=== PATIENT | female | born 1995 | race Hispanic/Latino ===

== ENCOUNTER 2019-07-26 18:17 | Emergency (ER) | payer MEDICARE ==
[~2019-07-26] VITALS: Ht 175.3 cm; Wt 108.9 kg
--- OUTSIDE RECORDS SUMMARY | 2019-07-26 18:20 | XMS REPORT | Summary of Care ---
Author Author [facility] - Health Organization [facility] - Health Address Unknown Phone Unavailable Care Team Providers [employer] Sales Representative Name Role Phone Mykel Vaughana Summer DIXONM PCP Reason for Visit * Reason Comments Lab Results Encounter Details Care Team Description Date Type Department Gabby Reyes [id number] [place] [address] Lab Results [facility]12/2019 [facility] [address] [place] [address] Allergies Comments Active Allergy Reactions Severity Noted Date Penicillin Rash 01/18/2018 documented as of this encounter (statuses as of 06/12/2019) Medications End Date Status Medication Sig Dispensed Refills Start Date 06/15/2019 Active valACYclovir 500 mg Take 1 tablet 20 tablet 3 tablet by mouth 2 9 (two) times daily for 40 days. 06/12/2019 Active azithromycin (ZITHROMAX) Take 2 2 tablet 0 500 mg tabletIndications: tablets by 9 Chlamydia trachomatis mouth once infection of lower now for 1 genitourinary sites dose. 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 Needs #2 cotesting 2019 Obesity (BMI 30-39.9) 01/18/2018 documented as of this encounter (statuses as of 06/12/2019) Resolved Problems Problem Noted Date Resolved Date Irregular menstrual cycle 05/06/2019 06/11/2019 Herpes simplex vulvovaginitis 12/06/2018 06/11/2019 General counseling for prescription of oral contraceptives 01/18/2018 05/08/2018 documented as of this encounter (statuses as of 06/12/2019) Immunizations Name Administration Dates Next Due HPV9 05/06/2019, 12/05/2018 Influenza Virus Vaccine 12/05/2018 Quad .5 mL IM 6+ MO Tdap 12/05/2018 documented as of this encounter Social History Date Tobacco Use Types Packs/Day Years Used Never Smoker Smokeless Tobacco: Never Used Drinks/Week oz/Week Comments Alcohol Use No Sex Assigned at Date Recorded Not on file Industry Job Start Date Occupation Not on file Not on file Not on file Travel End Travel History Travel Start No recent travel history available. documented as of this encounter Last Filed Vital Signs Not on filedocumented in this encounter Plan of Treatment Care Team Description Date Type Specialty Lab, Jey 09/12/2019 [employer] [facility] Visit 1, Jey Slade Rn 11/07/2019 Nurse Visit [facility] Order Schedule Name Type Priority Associated Diagnoses Expected: 09/11/2019, Expires: 12/12/2019 GC & CHLAMYDIA AMPLIFIED LAB Routine Chlamydia trachomatis ASSAY infection of lower genitourinary sites Health Maintenance Due Date Last Done Comments INFLUENZA VACCINE (#1) 2019 12/05/2018 HPV VACCINES (3 - Female 07/29/2019 05/06/2019, 12/05/2018 3-dose series) VARICELLA VACCINES (1 of 06/11/2020 Postponed from 2006 2 - 13+ 2-dose series) (Insurance / Financial) PAP SMEAR 05/06/2022 05/06/2019, 01/18/2018 DTaP,Tdap,and Td Vaccines 12/05/2028 12/05/2018 (2 - Td) PNEUMOCOCCAL 0-64 YEARS Aged Out No longer eligible based COMBINED SERIES on patient's age to complete this topic documented as of this encounter Results Not on filedocumented in this encounter Visit Diagnoses Diagnosis Chlamydia trachomatis infection of lower genitourinary sites - Primary documented in this encounter Insurance Type Payer Benefit Subscriber ID Effective Phone Address Plan / Dates Group Medicaid [facility] [place] [facility] x[facility]-P [phone] [id number] [place] [address] documented as of this encounter Advance Directives Relationship Healthcare Agent Relationship Communication Name Mother Primary healthcare agent Lynette Palma
--- OUTSIDE RECORDS SUMMARY | 2019-07-26 18:20 | XMS REPORT | Summary of Care ---
Author Author [facility] Organization [facility] - [facility] Address Unknown Phone Unavailable Care Team Providers Care Management Coordinator Name Role Phone Kallie Vaughan CNM PCP Reason for Referral * (Routine) Referred By Contact Referred To Contact Status Reason Specialty Diagnoses / Procedures Sheela Zeng CNM [address] [address] New Request Diagnoses Pap smear of cervix with ASCUS, cannot exclude HGSIL P rocedures COLPOSCOPY,CERVIX W/ADJ VAGINA, CURETTAG Reason for Visit * Reason Comments ABNORMAL PAP Encounter Details Care Team Description Date Type Department Sheela Zeng CNM [address] [id number] Pap smear of cervix with ASCUS, cannot exclude HGSIL (Primary Dx); Pre-procedure lab exam; Obesity (BMI 30-39.9); HSV-2 (herpes simplex virus 2) infection; Chlamydia trachomatis infection of lower genitourinary sites; Status post colposcopy 06/11/[address] [facility] [address] [place] [address] Allergies Comments Active Allergy Reactions Severity Noted Date Penicillin Rash 01/18/2018 documented as of this encounter (statuses as of 06/11/2019) Medications End Date Status Medication Sig Dispensed Refills Start Date 06/15/2019 Active valACYclovir 500 mg Take 1 tablet 20 tablet 3 07/16/201 tablet by mouth 2 9 (two) times daily for 40 days. documented as of this encounter (statuses as of 06/11/2019) Active Problems Problem Noted Date Pre-procedure lab exam 06/11/2019 Chlamydia trachomatis infection of lower genitourinary sites 06/11/2019 Status post colposcopy 06/11/2019 HSV-2 (herpes simplex virus 2) infection 12/05/2018 Pap smear of cervix with ASCUS, cannot exclude HGSIL 05/08/2018 Overview: colpo 201705/06/2019- Cotesting. Needs #2 cotesting 2019 Obesity (BMI 30-39.9) 01/18/2018 documented as of this encounter (statuses as of 06/11/2019) Resolved Problems Problem Noted Date Resolved Date Irregular menstrual cycle 05/06/2019 06/11/2019 Herpes simplex vulvovaginitis 12/06/2018 06/11/2019 General counseling for prescription of oral contraceptives 01/18/2018 05/08/2018 documented as of this encounter (statuses as of 06/11/2019) Immunizations Name Administration Dates Next Due HPV9 [...] of this encounter Last Filed Vital Signs Reading Time Taken Comments Vital Sign 121/74 06/11/2019 2:55 PM CDT Blood Pressure 65 06/11/2019 2:55 PM CDT Pulse 37.1 C (98.8 F) 06/11/2019 2:55 PM CDT Temperature 21 06/11/2019 2:55 PM CDT Respiratory Rate - - Oxygen Saturation - - Inhaled Oxygen Concentration 99.5 kg (219 lb 6.4 oz) 06/11/2019 2:55 PM CDT Weight 163.8 cm (5' 4.5") 06/11/2019 2:55 PM CDT Height 37.08 06/11/2019 2:55 PM CDT Body Mass Index documented in this encounter Patient Instructions * Patient Instructions* Kell Church, GRID TRIMMER - 06/11/2019 2:45 PM CDT Index Polish Relatedtopics Adult Immunizations SESAY POINTS You need shots to help keep you from getting sick from some illnesses. The sh ots can help prevent some serious health problems. Most people need shots to protect against the flu and tetanus. Depending on y our age and health, you may need other shots. Your healthcare provider can tell you what shots you should have, and when to have them. What are immunizations? The immune system is how your body fights against infection. Immunizations (also called vaccines) are medicines to help your immune system protect you from infe ction. Some immunizations require more than one shot, and others can be given in just one shot. Some immunizations work best if you get a booster shot every few years. If you dont get all the shots you need to be immunized, you may be at risk for getting sick. Keeping up to date with your shots may keep you from getting a serious disease. The shots make it much less likely that you will get sick. If you do get the inf ection after you get the vaccine, you may not get as sick as you would if you purdy d not been immunized. Some vaccines keep you from being a carrier and infecting infants. What immunizations do adults need? Adults should have immunizations to protect against the following diseases. Tetanus, diphtheria, and pertussis are diseases caused by bacteria. Tetanus, also called lockjaw, is a disease that enters your body through cuts and scratches. Tetanus causes severe muscle spasms, including the muscles of the head and neck. It can cause . Diphtheria is spread from person to person. It causes a thick coating on thro at that can lead to breathing problems and . Pertussis, also called whooping cough, is easily spread from person to person . It can cause severe coughing and vomiting. It can be a dangerous infection for babies who might catch it from adults. Adults can be carriers without being sick or having symptoms. The Tdap not only protects you from whooping cough, but it also keeps you from being a carrier and infecting infants. Adults and older children are given either Tdap, which gives protection against all 3 illnesses, or Td, which gives protection against tetanus and diphtheria: If you didnt get the 3-shot series of shots for these infections as a chil d, you should get them now. One dose of Tdap is recommended for all teens and adults, even if you have purdy d tetanus vaccines as a child. It can be given in place of a tetanus booster. Th en get a Td booster every 10 years. If you have an animal bite, or a cut or puncture wound that has dirt or sheridan metal in it, and your last tetanus shot was more than 5 years ago (or you don't know when you had your last shot), get a Td or Tdap shot as soon as possible af ter the bite or injury. women should get the Tdap shot after the 20th week of , pre ferably during the last trimester of (weeks 27 to 40). This is recomme nded for each . Influenza (flu) is caused by a virus that is easily spread from person to per son. It causes fever, headaches, body aches, sore throat, and cough. Adults and children 6 months and older should get a flu shot every year. July is the bes t time to get the vaccine. Getting a flu shot is especially important for people who are old, very young, or who have a chronic health condition. Its also im portant for women to get a flu shot. If you think you are allergic to eggs, talk to your healthcare provider before g etting the vaccine. Pneumococcal disease is caused by bacteria and is spread from person to perso n. The bacteria can cause serious infections of the lungs, blood, or the coverin g of the brain (meningitis). The pneumococcal shot is recommended for all adults 65 and older. Your healthcare provider may recommend the shot if you are younger than 65 and have health problems, such as diabetes, lung, heart or kidney prob lems or an immune system illness like HIV. Two types of pneumococcal shots are u sed. Ask your healthcare provider about getting one or both types over several w eeks or up to a year apart. Other shots you may need are: Chickenpox (varicella) is a common childhood rash caused by a virus. The viru s is passed from person to person. Chickenpox can cause serious problems such as high fevers or swelling in the brain, in adults who never had the disease or the vaccination. Two shots of the vaccine are recommended if you have never had ch ickenpox. Shingles (herpes zoster) is a painful rash caused by the same virus that caus es chickenpox. The pain caused by shingles can last for months or years after th e rash is gone. Anyone who has had chickenpox can get shingles. It is most commo n in middle-aged or older adults. Adults 60 years of age and older should get th e shingles vaccine. The vaccine does not always prevent shingles, but it can les sen the pain if you do get shingles. Hepatitis A is a liver infection caused by a virus. You can get this infectio n if you touch something infected with the virus and then touch your mouth. Hepa titis A is often spread by eating food that has been touched by an infected pers on who has not washed their hands after going to the bathroom. Talk to your prov ider to see if you may need hepatitis A shots. You may be able to get a combined hepatitis A/hepatitis B vaccine. This combined vaccine is given in 3 doses over 6 months. Hepatitis B is a liver infection caused by a virus. You can get this infectio n by coming in contact with the blood or other body fluids of someone who is inf ected with the virus. Hepatitis B is often spread by having sex with or sharing needles with someone who has the infection. The vaccine is given as a 3-shot ser ies over 6 months. Measles, mumps, and rubella are infections caused by viruses that are passed from person to person. They are usually mild illnesses in children but may cause serious problems for adults. The shot for these 3 diseases is recommended if you were born in 1956 or later. Measles and mumps were very common before 1957, so older adults have probably been exposed to these diseases and are already immun e. If you have had 1 measles shot, you may need a second one. Ask your healthcar e provider. If a woman is not immune to rubella (also called Japanese measles) and gets infect ed with the rubella virus during , the baby could also get infected. Th e infection could cause severe defects. Women who have not had rubella and did not get the MMR shot as a child should have the shot before they get pregna nt. Women should avoid getting for at least 28 days after the shot. Meningococcal vaccine protects against meningitis, which is an infection of t he brain and spinal cord that is passed from person to person. This shot is maribel mmended for people with weak immune systems or who live in dormitories, such as in college or the . Human papillomavirus (HPV) is a virus that can cause cancer of the mouth, roger s, penis, or cervix, as well as genital warts. The HPV vaccine is approved for f emales and males age 9 to 26 years old. The vaccine is most effective if it is g iven before a young man or woman has sex for the first time. It is given as a se maverick of shots over 6 months. Haemophilus influenza type b (Hib) is a type of bacteria that can cause menin gitis, pneumonia, and infections of the throat, joints, heart, and blood. The va ccine is recommended for babies, and for some people who have had their spleens removed, who have had a bone marrow transplant, or who have a problem with their immune system. Ask your healthcare provider if you should have this vaccine. Travel to some countries requires shots against typhoid and other diseases. The shots you need may be different depending on what countries you are visiting. Yo healthcare provider or public health department can tell you what shots you n eed. Check on which shots you will need 2 or 3 months before your trip, because some vaccines need a few weeks before they protect you. Where can I get the shots? You can get the shots from your healthcare provider and at most local health [facility] artments. You can get more information from: Centers for Disease Control and Prevention [phone] https://www.cdc.gov/vaccines/index.html Developed by [employer]. Adult Advisor 2017.4 published by [employer]. Last modified: 2016-12-11 Last reviewed: 2017-07-12 This content is reviewed periodically and is subject to change as new health inf ormation becomes available. The information is intended to inform and educate an d is not a replacement for medical evaluation, advice, diagnosis or treatment by a healthcare professional. References Adult Advisor 2016.4 Index Copyright 2017 [employer], a division of [employer] All righ ts reserved. Index Polish Relatedtopics Pap Test SESAY POINTS A Pap test is a screening test done during a pelvic exam to check for abnorma l changes in the thin layer of cells that cover the cervix or vagina. Schedule your Pap test between menstrual periods. Dont douche, use creams or medicines in your vagina, or have sex for a day or two before the test. If the test result is normal, you dont need follow-up tests or treatment. If the test result is abnormal, ask your healthcare provider what types of abnor mal changes were found and what follow-up tests you might need. What is a Pap test? A Pap test is a screening test done during a pelvic exam. It checks for abnormal changes in the thin layer of cells that cover the cervix or vagina. The cervix is the lower part of the uterus that opens into the vagina. The vagina is the bi rth canal. The Pap test is also called a Pap smear or cervical smear. Why is this test done? This test is done to check for cervical cancer or precancerous changes in the ce lls called cervical intraepithelial neoplasia (DON). Cervical cancer can be prev ented if abnormal cells are found and treated before they become cancerous. Regu lar screening with Pap tests has reduced deaths from cervical cancer. The Pap test may also detect vaginal infections such as yeast infections, bacter ial vaginosis, or trichomonas. A human papillomavirus (HPV) test may be done at the same time as the Pap smear, using the same cells or different cells taken from your cervix. HPV infection c an cause cervical cancer. How often should I have a Pap test? You should have your first Pap test at age 21, even if you are not sexually acti ve. Then you should have a Pap test at least every 3 years until you are 65. If you are 30 or older, your healthcare provider may suggest combining a Pap test w ith an HPV test every 5 years instead of a Pap test every 3 years. You may need more frequent Pap tests if there are things that put you at a higher risk for ce rvical cancer or if you have had abnormal Pap tests. If you are over 65 years ol d, ask your healthcare provider if you can stop having Pap tests. If you have had a hysterectomy to remove all of the uterus, including the cervix , for reasons other than cancer, you may not need to have Pap tests. If you had a hysterectomy because of cancer or abnormal cells, or if your cervix was not re moved, you will need to keep having Pap tests as recommended by your healthcare provider. You and your healthcare provider can decide what testing schedule is right for y ou. Your healthcare provider may also recommend a pelvic exam every 1 to 3 years . A pelvic exam is a checkup of your female organs: the cervix, uterus, vagina, ovaries, and fallopian tubes. How do I prepare for this test? Dont schedule your Pap test during your menstrual period. The best time to schedule the test at a time when you are between periods. Dont douche for at least 2 days before the test. Dont use any creams or medicine in your vagina for at least 2 days before the test unless your healthcare provider tells you to. Dont have sex for 1 or 2 days before the Pap test because it can affect th e results. How is the test done? A Pap test takes only a few seconds and is done during a pelvic exam. You will l ie on your back on the exam table with your knees bent and the heels of your fee t in stirrup heel holders. Your healthcare provider will put a small tool called a speculum into your vagina to hold the vaginal horn open during the exam. Your provider will use a small, soft brush to take a few cells from the cervix. The cells will be sent to a lab for testing. The Pap test is not painful, but you may feel some discomfort when the speculum is put into your vagina. What does the test result mean? If the test result is normal, you dont need follow-up tests or treatment. If the test result is abnormal, ask your healthcare provider what types of abnor mal changes were found and what follow-up tests you might need. Test results are only one part of a larger picture that takes into account your medical history and current health. Sometimes a test needs to be repeated to harinder ck the first result. Talk to your healthcare provider about your result and ask questions, such as: If you need more tests What kind of treatment you might need What lifestyle, diet, or other changes you might need to make Developed by [employer]. Adult Advisor 2017.4 published by [employer]. Last modified: 2015-08-18 Last reviewed: 2015-08-10 This content is reviewed periodically and is subject to change as new health inf ormation becomes available. The information is intended to inform and educate an d is not a replacement for medical evaluation, advice, diagnosis or treatment by a healthcare professional. References Adult Advisor 2017.4 Index Copyright 2017 [employer], a division of [employer] All righ ts reserved. Index Polish Relatedtopics Human Papillomavirus SESAY POINTS Human papillomavirus (HPV) is a group of viruses that can cause papillomas (w arts), especially genital warts. Warts are small growths or bumps on the skin. T hey may be found on the vagina, penis, and scrotum, and in the area around the r ectum. Treatment may include medicine on the warts or removal of the warts with free zing or surgery. If you have genital warts and plan to get , get treatme nt for the warts before you get . A vaccine is available to prevent types of HPV infection that can cause genit al warts and cancer of the cervix. What is human papillomavirus? Human papillomavirus (HPV) is a group of viruses that can cause papillomas (wart s). Warts are small growths or bumps on the skin. There are many types of HPV. Most of the time, HPV does not cause health problem s. Some types of HPV cause genital warts, and others cause warts on other parts of the body. However, some types of HPV can cause cancer of the cervix, vagina, or vulva in women, and cancer of the penis in men. In both men and women, HPV ca n cause cancer of the anus, mouth, or throat. What is the cause? HPV is a common sexually transmitted disease spread by [id number]-ys-gbco contact. Mos t sexually-active men and women will get at least one type of HPV at some time i n their lives. Genital warts are more contagious and more easily spread than oth er warts. They may spread to other nearby parts of the body and they may be pass ed from person to person during sexual activity. It is not known why some people develop cancer or other health problems after be ing infected with HPV. You may be at higher risk if you have a weakened immune s ystem from: Taking medicines to prevent organ transplant rejection Cancer treatment HIV/AIDS What are the symptoms? You can be infected with HPV without having warts or any other symptoms. If you do have symptoms, they may include: Trouble swallowing or a sore throat that doesnt go away Small, flesh-colored, grayish white or pinkish white growths Red, black, or white areas on tissues in your mouth or throat Large warts or a group of warts that may bleed or be painful during sex The warts usually first appear 1 to 6 months after contact with an infected pers on. You may have many warts or just 1 wart. In men, warts can grow on the tip or shaft of the penis and sometimes on the scrotum, in the urethra (the tube that carries urine out of the body), or around the anus. In women, warts can grow in the vulva (the folds of skin around the opening of the vagina), on the cervix, i nside the vagina or urethra, or around the anus. How are they diagnosed? Your healthcare provider will ask about your symptoms, activities, sexual and me dical history, and examine you. In women, genital warts that are not causing symptoms may be found during a rout ine pelvic exam and Pap test, which is a screening test done to check for abnorm al changes in the cells of the cervix or vagina. An HPV-DNA test can be done at the same time for women age 30 and over to see if the type of HPV causing the wa rts is the type that may cause cancer. Because some types of HPV can cause preca ncerous or cancerous changes in the cervix, it is important for women who have h ad HPV infection to have regular Pap tests to check for abnormal cells. Cervical cancer can be prevented with regular Pap tests and follow-up. Your provider may put a liquid on the skin to make it easier to see warts or use a magnifying scope to look closely at your genitals. A biopsy may be taken to h elp make a diagnosis. A biopsy is the removal of a small sample of tissue for te sting. There is no test to check for HPV infection in the mouth and throat. How are they treated? HPV is a common virus, and usually does not need treatment unless it causes wart s or other skin changes. There are several ways to treat warts caused by HPV. Your healthcare provider wi ll discuss your treatment choices with you. Usually the treatment is done in the provider's office. Your healthcare provider may: Put medicine on the warts Surgically remove the warts Freeze the warts with liquid nitrogen (cryotherapy) Destroy the warts with a laser You may need a local anesthetic to numb the area before some of these treatments . In some cases, your provider may advise waiting to see if the warts go away on their own. Removal of the warts does not get rid of the virus. You may get more warts after treatment. How can I take care of myself? Follow the full course of treatment prescribed by your healthcare provider. In a ddition: Keep your genital area clean and dry. Wash your hands well after touching the area where you have warts. Dont scratch the warts. Ask your provider: How and when you will get your test results How long it will take to recover If there are activities you should avoid and when you can return to your norm al activities How to take care of yourself at home What symptoms or problems you should watch for and what to do if you have the m Make sure you know when you should come back for a checkup. Keep all appointm ents for provider visits or tests. If you have genital warts and plan to get , have your warts checked b y your provider. How can I help prevent the spread of HPV? The best way to prevent the spread of HPV is by not having sex. HPV vaccines are available to prevent several types of HPV infection, including those that can cause genital warts and cancer. If you already have HPV, the vacc ine will not cure your infection, but it will help prevent infections from other types of HPV. HPV vaccines are approved for females and males age 9 to 26 years old. The vacci ne is most effective if it is given before a young man or woman has sex for the first time. The best age to give the vaccine to boys and girls is at 11 to 12 ye ars of age. It is given as a series of shots over 6 months. The HPV vaccine is u sually not given to women. Here are some other things you can do to help prevent HPV or its complications: Women: Get an exam every year and a Pap test as often as your healthcare prov ider recommends. Use latex or polyurethane condoms during foreplay and every time you have vag inal, oral, or anal sex. Even after your warts are gone, you can infect your par tner because the virus is still in your body. Condoms can lower the risk of gett ing genital warts from another person, but HPV can spread from areas not covered by a condom. Have sex with only 1 person who is not having sex with anyone else. Avoid sexual contact until the genital warts or HPV is completely treated and healed. Developed by [employer]. Adult Advisor 2017.4 published by [employer]. Last modified: 2017-01-12 Last reviewed: 2016-10-09 This content is reviewed periodically and is subject to change as new health inf ormation becomes available. The information is intended to inform and educate an d is not a replacement for medical evaluation, advice, diagnosis or treatment by a healthcare professional. References Adult Advisor 2017.4 Index Copyright 2017 [employer], a division of [employer] All righ ts reserved. Index Polish Relatedtopics Sexually Transmitted Diseases SESAY POINTS Sexually transmitted diseases (STDs) or STIs (sexually transmitted infections ) are infections that pass from one person to another during sexual contact. Jair e of the more common STDs are chlamydia, gonorrhea, herpes, crab lice, syphilis, HPV and genital warts, trichomonas, HIV/AIDS, and hepatitis. Some STDs can be cured with antibiotic medicine, especially when they are oh gnosed and treated early. There is no cure for STDs caused by a virus, like herp es, HIV, HPV, hepatitis B, and genital warts. However, treatment of these infect ions can help decrease discomfort and help avoid complications. You can help prevent STDs if you use latex or polyurethane condoms during for eplay and every time you have vaginal, oral, or anal sex. The two STDs which can be prevented by vaccine are HPV (human papilloma virus) and hepatitis B. What are sexually transmitted diseases? Sexually transmitted diseases (STDs) are infections that pass from one person to another during sexual contact. They may also be called sexually transmitted inf ections, or STIs. Some of the more common STDs are chlamydia, gonorrhea, herpes, crab lice, syphilis, HPV and genital warts, trichomonas, HIV (the virus that ca uses AIDS), and hepatitis A, B, and C. Some of these diseases are more dangerous than others. Some can be prevented with vaccines or cured with antibiotics, but for others, like herpes or HIV, there is no cure. Some can make you very sick or cause . You can have one of these diseases and not know it because you don't have any sy mptoms and don't feel sick. You can then spread the disease to sexual partners. Or you may know that you have an STD but are too embarrassed to talk about it wi th your sexual partner. Sexual partners can get the disease if you dont pract ice safe sex every time. STDs can make it hard or impossible for a woman to get . They can also i ncrease the risk that a woman will have a tubal , which can be very ambrose gerous. Some infections may increase the risk for early labor and premature mark anthony h. STDs can spread from a mother to her baby and cause the baby to have defects or . Males can also become infertile from gonorrhea or chlamydia infections. What is the cause? Bacteria, viruses, and parasites cause STDs. They are usually passed between par tners during sex. This includes vaginal intercourse, anal intercourse, oral sex, waph-fz-amck contact in the genital area, kissing, and the use of sex toys, such as vibrators. Hepatitis B, hepatitis C, and HIV can also spread through IV drug use. What are the symptoms? The symptoms depend on the type of STD. Some STDs may not cause symptoms until y ears after you are infected. Others may start within a few days. Symptoms may in clude: Burning or pain when urinating Unusual discharge from the vagina or penis Itching, burning, or pain around the vagina, penis, or rectum Rashes, sores, blisters, or painless wart-like growths around the mouth, vagi na, penis, or rectum Pain in the belly, penis, or vagina with sex Sore throat Vaginal bleeding between menstrual periods How are they diagnosed? Your healthcare provider will ask about your symptoms and medical history and ex amine you. You may have tests, such as blood or urine tests. How are they treated? Some STDs can be cured with antibiotic medicine, especially when they are diagno sed and treated early. There is no cure for STDs caused by a virus, like herpes, HIV, HPV, and genital warts. However, treatment of these infections can help de crease discomfort and help avoid complications. If you cannot afford to pay for treatment, most [facility] have an STD clinic or county health department where visits are free of charge or cost a very small amount. You can get the same STD again, even if you have had it once and have been treat ed. How can I take care of myself? Follow the full course of treatment prescribed by your healthcare provider. Ask your healthcare provider: How and when you will get your test results What other STDs or STIs you should be tested for How long it will take to recover If there are activities you should avoid and when you can return to normal ac tivities When it is safe to start having sex again How to take care of yourself at home What symptoms or problems you should watch for and what to do if you have the m Make sure you know when you should come back for a checkup. Keep all appointment s for provider visits or tests. Tell everyone with whom you have had sex in the last 3 months about your infe ction. Or you can ask the clinic staff to tell them. They will not use your name . Your sexual contacts need to be treated even if they dont have any symptoms . Dont have sex until both you and your partner have finished all of the med icine and your provider says it's OK. Then always use condoms every time you hav e sex. How can I help prevent STDs? Use latex or polyurethane condoms during foreplay and every time you have vag inal, oral, or anal sex. Have just 1 sexual partner who is not sexually active with anyone else. If you have had sex without a condom and are worried that you may have been i nfected, see your healthcare provider even if you dont have symptoms. Some STDs can be prevented by a vaccine. The HPV vaccine prevents types of HPV (human papillomavirus) infection that a re high risk for genital warts and cancer of the cervix. HPV can also cause canc er of the tonsils and throat as well as the penis. HPV shots are approved for fe males and males aged 9 to 26. Its best to get the HPV vaccine before having s ex for the first time. Shots that prevent hepatitis B infection have been given to newborns in the [place] since the early . You should get the shots if you did not get them as a b porsche and are 12 to 24 years old or at risk of infection. A shot to protect against hepatitis A is also available for people at risk (f or example, men who have sex with men). You can get more information from: Your healthcare provider or the health department A family planning or STD clinic The Centers for Disease Control (CDC) 970.583.7990 https://www.cdc.gov/std Developed by [employer]. Adult Advisor 2016.4 published by [employer]. Last modified: 2017-05-22 Last reviewed: 2017-01-11 This content is reviewed periodically and is subject to change as new health inf ormation becomes available. The information is intended to inform and educate an d is not a replacement for medical evaluation, advice, diagnosis or treatment by a healthcare professional. References Adult Advisor 2016.4 Index Copyright 2017 [employer], a division of [employer] All righ ts reserved. Index Polish Relatedtopics Condom: Male SESAY POINTS The male condom, sometimes called a rubber, is a thin, disposable covering th at fits snugly over an erect penis. Condoms are used to prevent and to help protect against sexually transmitted diseases or infections. To protect against and infection, use latex or polyurethane condoms during foreplay and every time you have vaginal, oral, or anal sex. You can use a spermicidal foam or jelly with a condom to help prevent pregnan cy if the condom breaks. What is a male condom? The male condom, sometimes called a rubber, is a thin, disposable covering that fits snugly over an erect penis. Condoms are used to prevent and to he lp protect against sexually transmitted diseases or infections (STDs or STIs) vallejo ch as gonorrhea, syphilis, herpes, and HIV/AIDS. If you or your partner are havi ng sex with more than one person, its best to use a condom every time you hav e sex. Male condoms are available in a wide variety of styles, colors, and textures. Th ey may be made of latex, polyurethane (a type of plastic), or animal skin. Some condoms are lubricated. Only latex and polyurethane condoms protect against infe ction. Animal skin condoms do not. To make sure you have a condom that helps pro tects against disease, check the condom package for a statement that the condom helps prevents disease. How is it used? To protect against and infection, use latex or polyurethane condoms du ring foreplay and every time you have vaginal, oral, or anal sex. Each condom mu st be used just once and then thrown away. To use a condom: 1. Leave the condom rolled up before you put it on. Place the condom over the ti p of your penis when it is erect (hard). If you have not been circumcised, pull your foreskin back before putting the condom on. 2. Leaving a space at the top of the condom to collect semen, roll the condom do wn over the penis so that it covers all of the penis. Squeeze the tip of the con dom as you roll it down to release any trapped air and prevent it from bursting when semen is released from the penis during sex (ejaculation). 3. After ejaculation and before your penis gets soft, hold onto the condom at th e base of your penis while you pull your penis out of your partner. Make sure th at the condom does not slip off and spill any sperm. 4. Throw away the used condom. Never use the same condom more than once. Its very important to use a new condom each time you have sex. Its a good idea to have more than one condom with you, in case one breaks. If a condom breaks, as soon as you realize it, take it off and use a new condom. If you dont have another condom, stop having sex until you can get another. If a condom breaks during sex, the chances of a are higher, even if ejac ulation has not happened yet. Some lubricants may help prevent condoms from breaking during use. They may also help prevent irritation and so might help decrease the chance of infection. Payton er-based lubricants, such as [place] Jelly, are a good choice to use with any condoms . Do NOT use oils, lotions, or Vaseline (petrolatum, or petroleum jelly) with la cornelio condoms. Oil-based lubricants can make latex condoms break. It is OK to use oil-based lubricants with polyurethane condoms. Should I use a spermicide with the condom? Spermicide is a chemical that kills sperm. You can use a spermicidal foam or jel ly with a condom to help prevent if the condom breaks. However, some s permicides can irritate the skin around the vagina, penis, or rectum. If you hav e an irritation on your skin, then you have a higher risk of getting an infectio n. If you have sex several times in 1 day or have anal sex, its probably bett er not to use spermicides, including condoms lubricated with spermicide. What are the benefits? Male condoms have a variety of benefits: They are very effective in preventing if used properly. Latex and polyurethane condoms are the only form of control that also h elps prevent STIs. Condoms can be bought in drug and grocery stores without a prescription. They are a relatively inexpensive method of control. They are small, easy to carry, and disposable. What are the disadvantages? The disadvantages of condoms are: A condom must be put on the penis BEFORE you have sex. If both you and your p artner are not able to remember EVERY time, this is not a good form of con trol for you. Even if you forget just one time, your partner could get . Condoms can leak or break during sex, possibly leading to . They may slip off when the penis is taken out of the vagina, possibly leading to . If a condom is exposed to heat for a long time (for example, from being jorge ed in a back pocket), it may weaken and break. If you have a latex allergy and use a latex condom, you may have mild itching and redness of the skin after using the condom. Or you may have a severe allerg ic reaction that is life-threatening. If you are allergic to latex, use polyuret hane condoms instead. Developed by [employer]. Adult Advisor 2017.4 published by [employer]. Last modified: 2015-11-15 Last reviewed: 2015-11-15 This content is reviewed periodically and is subject to change as new health inf ormation becomes available. The information is intended to inform and educate an d is not a replacement for medical evaluation, advice, diagnosis or treatment by a healthcare professional. References Adult Advisor 2017.4 Index Copyright 2017 [employer], a division of [employer] All righ ts reserved. Index Polish Relatedtopics Mammogram SESAY POINTS A mammogram is an X-ray exam of the breasts. Talk to your healthcare provider about when you should start having mammogram s and how often you should have them. There is risk with every treatment or procedure. Ask your healthcare provider how these risks apply to you, and discuss any other questions or concerns that you may have. What is a mammogram? A mammogram is an X-ray exam of the breasts. When is it used? A screening mammogram may be used to check for breast cancer in women who have n o signs or symptoms of the disease. There is a better chance of curing cancer if it is found at an early stage. A diagnostic mammogram can be used to check for breast cancer after a lump or ot her sign has been found. Any woman can get breast cancer. If you have risk factors, it doesnt mean aren t youll get breast cancer. Most women have some risk factors but dont get breast cancer. You may have a higher risk of breast cancer if: You are over 60 years old. You have had breast cancer before or you have had some noncancerous breast di seases. You have a family history of breast or ovarian cancer, especially a mother, s ister, or daughter, but also other relatives on either your fathers or mother s side. You have inherited a change in genes called BRCA1 and BRCA2. This change incr eases your risk for breast cancer. You have had radiation therapy to the chest. You drink alcohol (the more you drink, the higher your risk). You are overweight after going through menopause. You dont get a lot of regular exercise. You started menstruating before age 12 and/or went through menopause after ag e 55. You never gave to a child or you had your first child after age 30. You did not breastfeed. You have taken hormone therapy with estrogen and progesterone after menopause . Medical organizations do not agree on how often you should have a mammogram. The [place] Preventive Services Task Force recommends a mammogram every 2 years for w omen 50 to 74 years old (2009). The [employer] [place] [employer] recommends that women with an average risk of breast cancer should have a screening mammography every year from ages 45-54 years. Wo men ages 55 years and older should have screening every 2 years, or they can con tinue yearly. Women should be able to begin yearly screening between the ages of 40 and 44 years (2015). The [employer] [place] [employer] (ACOG) recommends mammog denzel starting at age 40 and then yearly (2015). Talk to your healthcare provider about when you should start having mammograms a nd how often you should have them. If you have a high risk of breast cancer, you may need to start screening earlie r and may need to be screened more often. If you have a very high risk, you may want to see a breast cancer specialist. Mammograms are also used to check lumps found during an exam. The only way to kn ow for sure if a lump is caused by cancer is to do a biopsy, which is the remova l of a small sample of tissue for testing. Some lumps, even if they are not caus ed by cancer, may need to be removed by surgery. Mammograms can show a more exact location of a lump before you have biopsy or vallejo rgery to remove it. In addition to the mammogram, other exams may include: Monthly self exams of your breasts Yearly exams of your breasts by your healthcare provider Magnetic resonance imaging (MRI), which uses a strong magnetic field and radi o waves to show detailed pictures of your breasts You may choose not to have this exam. Ask your healthcare provider about the noel efits and the risks. How do I prepare for this exam? Be sure your underarms and chest are clean. Don't put any deodorants, powders, l otions, or perfumes on your underarms or chest on the day of your mammogram. The se products can look like changes in your breast tissue on the mammogram. What happens during the procedure? The exam is done in a breast imaging center at the hospital, your healthcare pro vider's office, an X-ray clinic, or a mobile van with a mammography machine insi de. It takes just a few minutes. You will be asked to take off your shirt, bra, and jewelry and will be given a gown to wear. The machine has a platform for your breasts. The technologist will put one of yo ur breasts on the platform and put an X-ray plate on the breast to press it almo st flat. This may be uncomfortable while the X-ray is being taken. This is done to: Even out your breast so that all of the tissue is the same thickness Hold your breast still so that the image will be clear and sharp Use the lowest X-ray dose possible Two or three different views of each breast will be taken to check the whole thalia ast. What happens after the procedure? You may need to wait a few minutes while the technologist makes sure the X-rays are clear and sharp. The X-rays will then be reviewed by a radiologist and the r esults reported to your healthcare provider. Ask your healthcare provider how an d when you will get your test results. You will usually get a letter from the ra diologist after results have been sent to your provider. Do not assume the resul ts are normal if you do not hear from your health care provider or the mammograp hy facility. What are the risks of this procedure? Your healthcare provider will explain the procedure and any risks. Some possible risks include: Mammograms can find small growths that are not cancer. You may need another m ammogram or another procedure to see if you have breast cancer and then find out that you dont have cancer. This can cause anxiety as you wait for results. It can also be expensive. Mammograms can find very small cancers that may box turner to be harmless. Thes e cancers may stop growing, shrink, or even go away on their own. Because its not possible to know if a cancer will be harmless, many providers recommend that all cancer needs to be treated. Mammograms expose you to very low levels of radiation. Each time you have a m ammogram or any other kind of X-ray, you are exposed to more radiation, which ma y be a risk factor for developing cancer. Mammograms do not find all breast cancers. If you feel a lump in your breast, report it right away to your provider even if you have had a recent mammogram t hat did not find any cancer. There is risk with every treatment or procedure. Ask your healthcare provider ho w these risks apply to you. Be sure to discuss any other questions or concerns t hat you may have. Developed by [employer]. Adult Advisor 2017.4 published by [employer]. Last modified: 2017-03-26 Last reviewed: 2017-03-23 This content is reviewed periodically and is subject to change as new health inf ormation becomes available. The information is intended to inform and educate an d is not a replacement for medical evaluation, advice, diagnosis or treatment by a healthcare professional. References Adult Advisor 2016.4 Index Copyright 2017 [employer], a division of [employer] All righ ts reserved. Index Polish Relatedtopics Breast Self-Exam SESAY POINTS Breast self-exam is a way to check your breasts for lumps or changes yourself . Talk with your healthcare provider about doing breast self-exams. Make sure you know what symptoms or problems you should watch for and what to do if you have them. What is a breast self-exam? A breast self-exam is a way to check your breasts for problems that may be a sig n of cancer. When you do a breast self-exam, you check for lumps, thickening, an d dimples in the breast. You also check for lumps in your underarms and discharg e from the nipple. Breast self-exams may be helpful for women who have had previous breast cancer t o check for changes between mammograms. What is the best time to examine my breasts? Talk with your healthcare provider about doing breast self-exams. These exams ca n help you to be more familiar with your body. They can help you notice changes that need to be checked for breast cancer. If you find a lump or other changes, talk with your healthcare provider. How do I do a breast self-exam? 5. Lie down and put your left arm under your head. This spreads the breast tissu e more evenly on your chest. Use your right hand to examine your left breast. Wi th the flat part of your 3 middle fingers, press gently in small circular motion s over the entire area of the breast, checking for any lump, hard knot, or thick ening. Use different degrees of pressurelight, medium, and firmto feel thalia ast tissue at different levels in your breast. Be sure to check the whole breast , from your collarbone above your breast and down until you feel only ribs below your breast. 6. After checking your left breast, put your right arm under your head. Use your left hand to examine your right breast in the same way you checked your left br east. 7. Look at your breasts while standing in front of a mirror with your hands pres sing firmly down on your hips. Look for lumps, new differences in size and shape , and swelling or dimpling of the skin. 8. While standing or sitting, slightly raise one arm, then the other, so you can check your underarm area for lumps. 9. Squeeze the nipple of each breast gently between your thumb and index finger to check for discharge or fluid from the nipples. If you want to check if you are doing the exam the right way, ask your healthcar e provider to show you how to do it. When should I call my healthcare provider? It is normal for your breasts to feel a little lumpy and uneven. There are also normal changes that happen to your breasts because of , aging, menstrua l cycles, taking control pills or other hormones, and menopause. Most lumps and other changes are not a sign of cancer, but the only way to be vallejo re is to see your healthcare provider. If you notice any of the following change s in your breast, see your provider right away for an exam: You have a new or unusual lump, whether it is tender or not. Your nipple is painful or starts turning into your breast. You have new wrinkling or dimpling of the skin. The nipple and surrounding skin is red or has a scaly rash. You have a discharge of fluid from the nipple (other than breast milk if you are breast-feeding). Developed by [employer]. Adult Advisor 2017.4 published by [employer]. Last modified: 2015-11-11 Last reviewed: 2015-11-11 This content is reviewed periodically and is subject to change as new health inf ormation becomes available. The information is intended to inform and educate an d is not a replacement for medical evaluation, advice, diagnosis or treatment by a healthcare professional. References Adult Advisor 2016.4 Index Copyright 2017 [employer], a division of [employer] All righ ts reserved Index Polish Relatedtopics Colposcopy (Exam of Vagina and Cervix) SESAY POINTS Colposcopy is an exam using a kind of microscope placed just outside the vagi na to look closely at your vulva, vagina, and cervix. Colposcopy is most often done if you have had an abnormal Pap test or HPV (hu man papillomavirus) test. This exam can help your healthcare provider make a mor e accurate diagnosis and decide on possible treatments. Ask your healthcare provider how and when you will hear your test results. Make sure you know what symptoms or problems you should watch for and what to do if you have them. What is colposcopy? Colposcopy is a procedure to look closely at your vulva, vagina, and cervix. The vulva is the outer part of your genitals. It includes the skin around the openi ng of the vagina ( canal) and urethra (where urine leaves your body). The c ervix is the opening from the vagina to the uterus. This exam may be done as par t of a pelvic exam. Your provider uses a kind of microscope called a colposcope. It is placed just outside the vagina and gives a close-up view of the skin and cells of your vulva, vagina, and cervix. When is it used? Colposcopy is most often done if you have had an abnormal Pap test or HPV (human papillomavirus) test result showing: Possible infection Precancerous cells Cells that look like cancer Any other abnormal cells This exam can help your healthcare provider make a more accurate diagnosis and d ecide on possible treatments. How do I prepare for this exam? Tell your healthcare provider if you think you may be . Colposcopy ca n be done during . However, your provider may wait to do a biopsy until after your baby is born. Plan to have the exam when you are not having a menstrual period. These exams are usually not done during your period. Do not douche, have sex, or use any medicines in the vagina for at least 24 h ours before the exam. Tell your healthcare provider about all medicines and supplements that you ta ke. Some products may increase your risk of side effects or bleeding. Ask your ealthcare provider if you need to avoid taking any medicine or supplements befor e the procedure. Follow any other instructions your healthcare provider gives you. Ask any questions you have before the procedure. You should understand what y our healthcare provider is going to do. You have the right to make decisions abo ut your healthcare and to give permission for any tests or procedures. What happens during the exam? The exam can be done at your healthcare providers office. Because the cervix doesnt feel much pain, you will not need an anesthetic to numb the area. You will lie on your back on the exam table with your knees bent and the heels o f your feet in stirrup heel holders, just as you do for a regular pelvic exam. Y our healthcare provider will put a small tool called a speculum into your vagina to hold the vaginal horn open during the exam. This is the same tool used duri ng a Pap test. Your provider will put the colposcope at the opening of your vagina. Your provid er may apply a vinegar solution to the tissue to make any abnormal areas more vi sible. You may feel a mild stinging when the liquid is applied. Your provider may charles also use a tool to remove 1 or more small pieces of tissue for lab tests (biop sy). You may feel a pinch or cramp when tissue is removed. Your provider may put a thick, pasty solution or medicine on the area of the biopsy. This will to help prevent bleeding. What happens after the procedure? A few women feel lightheaded right after the exam and may need to stay lying yaneth n for a few minutes after the exam. You may have some cramping for a short time. You may have a little dark-colored, armen discharge from the vagina for a few da ys after the procedure. It may look like coffee grounds. If you had a biopsy: You may have light bleeding or spotting for up to a week. You may have mild cramping. You may notice a thick black discharge caused by blood and the paste put on t he biopsied area. This discharge may last for a few days. You should not douche or use tampons for 48 hours while the area heals. Use a pad for any bleeding. Dont have sex for 48 hours after the biopsy. Your provider may ask you to wait until you have had a chance to talk about the test results. Follow your healthcare provider's instructions. Ask your provider: How and when you will get your test results How long it will take to recover If there are activities you should avoid and when you can return to your norm al activities How to take care of yourself at home What symptoms or problems you should watch for and what to do if you have the m Make sure you know when you should come back for a checkup. Keep all appointment s for provider visits or tests. What are the risks of this procedure? Every procedure or treatment has risks. Some possible risks of this procedure in clude: Heavy bleeding (soaking more than 1 pad per hour, or more bleeding than your normal menstrual flow) Infection Ask your healthcare provider how these risks apply to you. Be sure to discuss an y other questions or concerns that you may have. Developed by [employer]. Adult Advisor 2017.4 published by [employer]. Last modified: 2016-06-28 Last reviewed: 2016-06-28 This content is reviewed periodically and is subject to change as new health inf ormation becomes available. The information is intended to inform and educate an d is not a replacement for medical evaluation, advice, diagnosis or treatment by a healthcare professional. References Adult Advisor 2017.4 Index Copyright 2017 [employer], a division of [employer] All righ ts reserved. Index Polish Relatedtopics Precancerous Changes in the Cervix SESAY POINTS Precancerous changes in the cervix means that abnormal cells were found duryoana g your female exam. Your healthcare provider may recommend regular follow-up exams to make sure t he cells do not become cancer. Treatment, when needed, includes a LEEP procedure or cone biopsy to remove th e abnormal cells. What are precancerous changes in the cervix? Precancerous changes in the cervix are abnormal cells in the lower part of the u terus that opens into the vagina. The uterus is the muscular organ at the top of the vagina. Babies grow in the uterus, and menstrual blood comes from the uteru s, through the cervix. The medical term for this problem is cervical intraepithelial neoplasia, or DON. DON is not cancer, but it can become cancer of the cervix if it is not treated. What is the cause? The most common cause of DON is infection with human papillomavirus (HPV). There are many types of HPV, and they can infect different parts of the body. Some ty pes infect the genital area and might develop into DON or cancer. You have a greater risk for DON if: You started having sex when you were a teen. You have more than 1 sex partner or you have a partner who has had many other partners. (This increases your risk of HPV infection.) You have a sexually transmitted disease or infection (STD or STI). You smoke. You have a weakened immune system, for example, because you are taking immuno suppressive drugs or because you have AIDS. You were exposed to RUFUS when your mother was . RUFUS is a medicine that before 1970 was given to some women to prevent miscarriage. What are the symptoms? Usually DON does not cause symptoms. Sometimes it causes: Bleeding during or after sex A change in vaginal discharge How is it diagnosed? Your healthcare provider will ask about your symptoms and sexual and medical his tory and you will have a pelvic exam. Tests may include: Pap test HPV test, which can be done at the same time you have a Pap test Colposcopy, which uses a type of microscope placed just outside the vagina to get a close-up view of your cervix. Your healthcare provider may use a tool dur ing this exam to take a biopsy. A biopsy is the removal of a small sample of tis liz for testing. How is it treated? Mild DON usually goes away without treatment. Your healthcare provider may recom mend treating some types of DON to stop it from becoming cancer. Treatment may i nclude a procedure to cut out the abnormal areas of the cervix, or that uses tammy rgy to freeze or kill the abnormal areas of the cervix: A LEEP (loop electrosurgical excisional procedure) removes the abnormal tissu e with a thin wire loop attached to an electrical unit, and it may be done in yo ur providers office. A cone biopsy usually uses a scalpel, a laser, or an electrical current to re move a cone-shaped piece of tissue from your cervix. An ablation uses energy such as freezing or a laser to destroy the abnormal a reas of the cervix. Rarely, women have trouble getting or have miscarriages as a result of these treatments. Most women are able to carry a baby to term without problems. However, if you get , you should tell your care provider about any cervical treatments you have had. How can I take care of myself? Get a pelvic exam, Pap test, and HPV test as often as recommended by your health care provider. This will let your provider find DON if it comes back and treat i t promptly. Follow your healthcare providers instructions. Ask your provider: How and when you will get your test results How long it will take to recover If there are activities you should avoid and when you can return to your norm al activities How long to wait before getting How to take care of yourself at home What symptoms or problems you should watch for and what to do if you have the m Make sure you know when you should come back for a checkup. Keep all appointment s for provider visits or tests. How can I help prevent DON? To lower your risk of DON: Practice safe sex: Use latex or polyurethane condoms during foreplay and every time you have vag inal, oral, or anal sex. However, condoms do not completely protect against HPV, which can be spread from other parts of the body. Have just 1 sexual partner who is not having sex with anyone else. If you had sex and are worried that you may be infected, see your healthcare provider even if you dont have any symptoms. If you have been sexually assaulted, you may need to be treated to prevent se xually transmitted infections. You should have an exam within a few hours of the assault before showering or bathing even if you dont want to press charges. You can also ask about being protected from when you have the exam. Ask your healthcare provider about getting the vaccine that helps prevent typ es of HPV infection that increase your risk for cervical cancer. The vaccine is approved for females and males between the ages of 9 and 26 years. Avoid having sex until you are 18 or older. If you smoke, try to quit. Talk to your healthcare provider about ways to urszula t smoking. Developed by [employer]. Adult Advisor 2017.4 published by [employer]. Last modified: 2016-09-26 Last reviewed: 2016-09-26 This content is reviewed periodically and is subject to change as new health inf ormation becomes available. The information is intended to inform and educate an d is not a replacement for medical evaluation, advice, diagnosis or treatment by a healthcare professional. References Adult Advisor 2017.4 Index Copyright 2017 [employer], a division of [employer] All righ ts reserved. Index Polish Zika Virus SESAY POINTS Zika virus infection can be spread by mosquito bites or by having unprotected sex. It is not known how long the Zika virus stays in body fluids such as blood and semen. There is no medicine that cures Zika virus infection. In most cases, you can care for yourself at home. If you have a serious infection, you may need to stay at the hospital. Zika virus infections in women can infect the baby and cause serious defects. The Centers for Disease Control and Prevention (CDC) recommends that women who are , or who might become , should NOT travel to areas where Zika virus has been reported. To avoid mosquito bites, stay in places that are clean, insect free, and have window screens or air conditioning when you travel. Avoid wearing perfume or ot her scented products because they can attract mosquitoes. Wear long pants and lo ng-sleeved shirts, and use an insect repellent whenever you are outdoors. What is Zika virus? Zika is a virus related to the viruses that cause yellow fever and Ebola. Zika v irus infection can be spread by mosquito bites or by having unprotected sex. It is not known how long the Zika virus stays in body fluids such as blood and seme n. What is the cause? Infected Aedes mosquitoes can pass the virus when they bite you. Aedes mosquitoe s are found in the [place] in some southern and central states, as well as in the [facility], [place], [place], southern [place], and [place]. This kind of mosquito tends to bite both during daytime and at night. Mosqu itos in some parts of the [place] have infected people with Zika virus. Zika virus may be spread by contact with infected blood such as by blood transfu marlena, organ transplant, or the sharing of needles or syringes contaminated with blood. Zika virus is spread through sexual contact also. The disease can be spre ad by people who do not have any symptoms and may not know they carry the virus. Zika virus may also be spread from a mother to her unborn baby, which can cause serious defects. There is no evidence that there is a risk of defect s in future pregnancies after you have had Zika virus infection. What are the symptoms? Often there are no symptoms. When symptoms do occur, they usually start 3 to 12 days after a mosquito bite. Symptoms last a few days to a week, and may include: Fever Rash Headache Joint and muscle pain Vomiting Eye redness and swelling, and pain behind the eyes If a baby is infected before , the baby may be born with a small head and a brain that has not developed properly. These children may have learning problem s, delays in walking and talking, or other problems. In some areas where Zika virus has been reported, there are more cases of Guilla in-Arenas syndrome (GBS). GBS is a rare disorder that causes the body's immune s ystem to attack the nerves. The damage to nerves causes muscle weakness, tinglin g, and sometimes paralysis. For most people, symptoms last a few weeks or severa l months and then go away. It is not known if Zika virus increases the risk for GBS. How is it diagnosed? Your healthcare provider will ask about your symptoms and medical history and ex amine you. You may have blood tests to rule out infections with other viruses vallejo ch as dengue or chikungunya. All women should be asked about exposure to Zika virus at every prenata l visit. If you have ongoing possible exposure, you should have blood tests for Zika virus 3 times during , even if you dont have symptoms. Women wh o have symptoms should get tested right away. If a woman has Zika virus symptoms or tests positive for Zika virus, th e baby should have tests within 2 days of . Tests include: A physical exam A neurological exam An ultrasound of the head A hearing test Blood tests If ultrasound shows that the baby might have congenital Zika virus synd frankie, the mother should be tested for Zika virus right away. How is it treated? There is no medicine that cures Zika virus. If your symptoms are mild, they will usually go away on their own. In most cases, you can care for yourself at home. If you have a serious infection, you may need to stay at the hospital. You may be given IV fluids, pain medicine, or other treatments. How can I take care of myself? Follow the full course of treatment prescribed by your healthcare provider. In a ddition: Rest. Take acetaminophen for fever, headache, or muscle aches. Read the label and t scarlett as directed. Unless recommended by your healthcare provider, you should not take this medicine for more than 10 days. Acetaminophen may cause liver damage o r other problems. Unless recommended by your provider, don't take more than 3000 milligrams (mg) in 24 hours. To make sure you dont take too much, check other medicines you take to see if they also contain acetaminophen. Ask your provider if you need to avoid drinking alcohol while taking this medicine. Do not take nonsteroidal anti-inflammatory medicines (NSAIDs), such as ibupro fen, naproxen, and aspirin, without your healthcare providers approval. If yo u have the dengue virus instead of Zika virus, these medicines may cause serious or life-threatening bleeding. Drink a lot of clear liquids. Water, broth, juice, electrolyte solutions, and noncaffeinated drinks are best. When you have a high fever, your body needs more liquid because you lose more water in your breath and from your skin. Ask your provider: How and when you will get your test results How long it will take to recover If there are activities you should avoid and when you can return to your norm al activities How to take care of yourself at home What symptoms or problems you should watch for and what to do if you have the m Make sure you know when you should come back for a checkup. How can I help prevent Zika virus? Zika virus infections in women can infect the baby and cause serious bi rth defects. The Centers for Disease Control and Prevention (CDC) recommends aren t women who are , or who might become , should NOT travel to are as where Zika virus has been reported. If you are and live in or must travel to areas with risk of Zika, use c ondoms from start to finish every time you have oral, vaginal, or anal sex, or d o not have sex during your entire . Also, protect yourself from mosquit o bites. Take these precautions to avoid mosquito bites: If you are planning to travel: Schedule travel to tropical areas during seasons when mosquitoes are less act randolph. Stay in places that are clean, insect free, and have air conditioning, window screens, or mosquito nets. Avoid wearing perfume or other scented products because they can attract mosq uitoes. Wear long pants and long-sleeved shirts. Use an insect repellent whenever you are outdoors. Don't use more repellent t lozano recommended in the package directions. Don't put repellent on open wounds or rashes. Dont put it near your eyes or mouth. When using sprays for the skin, dont spray the repellent directly on your face. Camargo the repellent on your hands first and then put it on your face. Then wash the spray off your hands. Adults should use repellent products with no more than 35% DEET. Wash it off your body when you go back indoors. Picaridin may irritate the skin less than DEET and appears to be just as effe ctive. Camargo clothes with repellents because mosquitoes may bite through thin clothi ng. Products containing permethrin are recommended for use on clothing, shoes, b ed nets, and camping gear. Permethrin-treated clothing repels and kills ticks, m osquitoes, and other insects and can keep working after laundering. Permethrin s hould be reapplied to clothing according to the instructions on the product labe l. Some commercial products are available pretreated with permethrin. Permethrin does not work as a repellent when it is put on the skin. In some studies, oil of lemon eucalyptus, a plant-based repellent, provided a s much protection as repellents with low concentrations of DEET, but it hasn't b een as well tested as DEET. Oil of lemon eucalyptus should not be used on childr en under age 3. Install or repair window and door screens so it is harder for mosquitoes to g et indoors. Mosquitoes lay eggs in water. To reduce mosquito breeding, drain standing payton er. Routinely empty water from flowerpots, pet bowls, clogged rain gutters, swim lois pool covers, buckets, barrels, cans, and other items that collect water. To prevent sexually transmitted disease, choose not to have sex, or use latex or polyurethane condoms during foreplay and every time you have vaginal, oral, or anal sex for at least 6 months after last possible exposure. Zika virus has been shown to live in a males semen longer than in other body fluids. If a male has been diagnosed or has had symptoms of Zika virus, he shoul d continue to use condoms for at least 6 months. You can get more information from: World Health Organization http://www.who.int/ergonomist/don/en/index.html The Centers for Disease Control and Prevention 862-176-3676 https://www.cdc.gov Developed by [employer]. Adult Advisor 2016.4 published by [employer]. Last modified: 2017-05-22 Last reviewed: 2017-03-28 This content is reviewed periodically and is subject to change as new health inf ormation becomes available. The information is intended to inform and educate an d is not a replacement for medical evaluation, advice, diagnosis or treatment by a healthcare professional. References Adult Advisor 2016.4 Index Copyright 2017 [employer], a division of [employer] All righ ts reserved. documented in this encounter Progress Notes * Sheela Zeng CNM - 06/11/2019 2:45 PM CDT Chief complaint: Chief Complaint Patient presents with ABNORMAL PAP HPI Anne Lang is a 23 year old female here for colposcopy due to ascus cannot r/o hgsil on her pap. . No smoking no drinking no drugs. No domesti c violence no depression no thoughts of suicide. She states that her vaccines are current Histories OB History Para Term AB Living 0 0 0 0 0 0 SAB TAB Ectopic Multiple Live Births 0 0 0 0 0 Past Medical History: Diagnosis Date Asthma Last exacerbation in 2009. No Medications. Herpes simplex vulvovaginitis 12/06/2018 Irregular menstrual cycle 05/06/2019 Pap smear abnormality of cervix 01/18/2018 ASCUS cannot exclude HGSIL STD (sexually transmitted disease) 01/18/2018 + chlamydia Family History Problem Relation Age of Onset Hypertension Mother Diabetes Mother Other - see comments Mother Lupus No Significant Medical Problems Father Diabetes Maternal Grandmother Hypertension Maternal Grandmother No Significant Medical Problems Maternal Grandfather Anxiety Paternal Grandmother No Significant Medical Problems Paternal Grandfather Arthritis NoFHx Asthma NoFHx defects NoFHx Breast Cancer NoFHx Colon Cancer NoFHx Ovarian Cancer NoFHx Uterine Cancer NoFHx Cancer NoFHx Depression NoFHx Genetic NoFHx Heart NoFHx High cholesterol NoFHx Mental retardation NoFHx Neurological NoFHx Osteoporosis NoFHx Psychiatry NoFHx Family Status Relation Name Status Mo Alive Fa Alive MGMo Alive MGFa Alive PGMo Alive PGFa Alive NoFHx (Not Specified) History reviewed. No pertinent surgical history. Social History Socioeconomic History Marital status: Single Spouse name: Not on file Number of children: Not on file Years of education: Not on file Highest education level: Not on file Occupational History Not on file Social Needs Financial resource strain: Not on file Food insecurity: Worry: Not on file Inability: Not on file Transportation needs: Medical: Not on file Non-medical: Not on file Tobacco Use Smoking status: Never Smoker Smokeless tobacco: Never Used Substance and Sexual Activity Alcohol use: No Drug use: No Sexual activity: Yes Partners: Male control/protection: Condom Comment: last intercourse 03/2019 Lifestyle Physical activity: Days per week: Not on file Minutes per session: Not on file Stress: Not on file Relationships Social connections: Talks on phone: Not on file Gets together: Not on file Attends mu-ism service: Not on file Active member of club or organization: Not on file Attends meetings of clubs or organizations: Not on file Relationship status: Not on file Intimate partner violence: Fear of current or ex partner: Not on file Emotionally abused: Not on file Physically abused: Not on file Forced sexual activity: Not on file Other Topics Concern Not on file Social History Narrative Anne Scott Lang is a 22 year old female, denies any physical or emotio nal abuse, no trauma, feels safe at home. Social History Substance and Sexual Activity Sexual Activity Yes Partners: Male control/protection: Condom Comment: last intercourse 03/2019 Labs Labs are pending. Radiology No new radiology. Allergies Anne is allergic to penicillin. Medications Anne has a current medication list which includes the following prescription(s ): valacyclovir. Review of Systems Constitutional: Negative. HENT: Negative. Eyes: Negative. Respiratory: Negative. Breasts: Negative. Cardiovascular: Negative. Gastrointestinal: Negative. Genitourinary: Negative. Musculoskeletal: Negative. Skin: Negative. Neurological: Negative. Psychiatric/Behavioral: Negative. Endocrine: Endocrine negative BP 121/74 | Pulse 65 | Temp 37.1 C (98.8 F) (Tympanic) | Resp 21 | Ht 5' 4.5" (1.638 m) | Wt 219 lb 6.4 oz (99.5 kg) | LMP 03/24/2019 | BMI 37.08 kg/ m Pregravid BMI: Could not be calculated Physical Exam Vitals reviewed. Constitutional: She is oriented to person, place, and time. She appears well-juju omed. Her body habitus is obese. Pulmonary/Chest: Normal inspiratory effort. Neuro/Psychiatric: She has a normal mood and affect. She is oriented to person, place, and time. Genitourinary Comments: Ghislaine Patel MA Rectal: normal rectum External genitalia: Normal external genitalia appropriate for age. Urethral meatus: Normal urethral meatus Urethra: Normal urethra. Bladder: Normal bladder Vagina:Normal vagina. Cervix: COLPOSCOPY PROCEDURE NOTE Preoperative Diagnoses: ascus cannot r/o hgsil The risks, benefits and alternatives were discussed. The patient voiced her unde rstanding. She wished to proceed and an informed consent was obtained. Patient has been identified by name and and will be undergoing a colposcopy. Patient, procedure and site have been confirmed by the following clinicians: Kell Church.GRID TRIMMER. Timeout performed by Sheela Zeng CNM at [address]. Procedure: The patient is placed on the exam table in a supine position. Specul um placed in vagina and excellent visualization of cervix achieved, cervix swabb ed with acetic acid solution. Biopsy (biopsies) taken from the cervix at 12-3-6 -9 o'clock. The patient tolerated the procedure well and there were no complications. Post-procedure instructions given. Patient verbalized understanding. Findings Results of PAP: ascus cannot r/o hgsil Cervix: Adequate - [place] (SCJ) visualized, abnormal vessels no lexie at 12-3-6-9 o'clock, acetowhite lesion(s) noted at 12-3-6-9 o'clock, HPV hilary nges noted at 12-3-6-9 o'clock, biopsies taken at 12-3-6-9 o'clock; hemostasis a chieved by Monsel's solution and ECC performed Vagina: vaginal colposcopy not performed Vulvar: vulvar colposcopy not performed Assessment Moderate/Severe DON 2 - 3 Plan Pap smear of cervix with ASCUS, cannot exclude HGSIL (primary encounter diagnos is) Comment: pelvic rest x 2 wks Plan: SURGICAL PATHOLOGY EXAM, COLPOSCOPY,CERVIX W/ADJ VAGINA, CURETTAG ER warnings pain relief measures Pre-procedure lab exam Comment: negative upt Plan: POCT TEST Obesity (BMI 30-39.9) Comment: Body mass index is 37.08 kg/m. Plan: increase activity HSV-2 (herpes simplex virus 2) infection Comment: no recent outbreak Plan: condoms advised Chlamydia trachomatis infection of lower genitourinary sites Comment: treated Plan: GC & CHLAMYDIA AMPLIFIED ASSAY ebony today Status post colposcopy Comment: LEEP discussed Plan: SURGICAL PATHOLOGY EXAM Return to clinic as needed will call with results Discussed treatment options. Medications as ordered. Reviewed patient instructions and provided printed copy. This visit did not involve counseling and coordination that comprised more than 50% of the visit time. * Kell Church LVN - 06/11/2019 2:45 PM CDT Pt presented to clinic for colpo per provider recommendations. Abnormal Pap: ASCUS, cannot exclude HGSIL. Pt currently using condoms as her BCM. UPT: n egative today per Trudy. LMP: 03/24/2019. Colpo consents explained and signed. A ll questions and concerns addressed. Pt verbalizes understanding and agrees w/PO C. Pt informed will be notified of results as soon as 7 days. Dysplasia Education provided, we include Colposcopy exam of vagina and cervix Precancerous Changes in the Cervix Zika-Basics and how to protect against Adult immunization brief version Pap test HPV Breast self exam Mammogram Quit smoking brief version Sexually Transmitted Diseases Condom;male Pamphlets provided to patient: HPV (DS), Abnormal Pap Test Results (MATTHEW) documented in this encounter Plan of Treatment Care Team Description Date Type Specialty Lab, Jey 08/08/2019 Surgeon Chief OB Satellites Visit 1, Jey Slade Rn 11/07/2019 Nurse Visit OB Satellites Date/Time Name Type Priority Associated Diagnoses 06/11/2019 3:17 PM CDT GC & CHLAMYDIA AMPLIFIED LAB Routine Chlamydia trachomatis ASSAY infection of lower genitourinary sites 06/11/2019 3:20 PM CDT SURGICAL PATHOLOGY EXAM LAB Routine Pap smear of cervix with ASCUS, cannot exclude HGSIL Status post colposcopy Order Schedule Name Type Priority Associated Diagnoses Ordered: 06/11/2019 COLPOSCOPY,CERVIX W/ADJ PROCEDURES Routine Pap smear of cervix with VAGINA, CURETTAG ASCUS, cannot exclude HGSIL Health Maintenance Due Date Last Done Comments [...] this topic documented as of this encounter Procedures Comments Procedure Name Priority Date/Time Associated Diagnosis POCT TEST Routine 06/11/2019 Pre-procedure lab exam 3:07 PM CDT documented in this encounter Results * POCT TEST (06/11/2019 3:07 PM CDT) POCT PREG Negative On board Yes controls acceptable with C Line POCT PREG LOT # [id number] POCT PREG TEST 10/21/2020 DATE Specimen Urine - URINE, CLEAN CATCH documented in this encounter Visit Diagnoses Diagnosis Pap smear of cervix with ASCUS, cannot exclude HGSIL - Primary Papanicolaou smear of cervix with atypical squamous cells cannot exclude high grade squamous intraepithelial lesion (ASC-H) Pre-procedure lab exam Pre-procedural laboratory examination Obesity (BMI 30-39.9) Obesity, unspecified HSV-2 (herpes simplex virus 2) infection Herpes simplex without mention of complication Chlamydia trachomatis infection of lower genitourinary sites Status post colposcopy documented in this encounter Advance Directives Relationship Healthcare Agent Relationship Communication Name Mother Primary healthcare agent Lynette Palma
--- OUTSIDE RECORDS SUMMARY | 2019-07-26 18:20 | XMS REPORT | Summary of Care ---
Author Author [facility] - Health Organization [facility] - Health Address Unknown Phone Unavailable Care Team Providers Care Senior Solutions Consultant Name Role Phone Kallie Vaughan CNM PCP Reason for Referral * (Routine) Referred By Contact Referred To Contact Status Reason Specialty Diagnoses / Procedures Sheela Zeng CNM [address] [address] New Request Diagnoses Pap smear of cervix with ASCUS, cannot exclude HGSIL P rocedures COLPOSCOPY,CERVIX W/ADJ VAGINA, CURETTAG Reason for Visit * Reason Comments ABNORMAL PAP Encounter Details Care Team Description Date Type Department Sheela Zeng CNM [address] [address] Pap smear of cervix with ASCUS, cannot exclude HGSIL (Primary Dx); Pre-procedure lab exam; Obesity (BMI 30-39.9); HSV-2 (herpes simplex virus 2) infection; Chlamydia trachomatis infection of lower genitourinary sites; Status post colposcopy 06/11/2019 Office Visit [facility] [address] [place] [address] Allergies Comments Active Allergy Reactions Severity [...] Patient Instructions * Patient Instructions* Kell Church, PRE OWNED SALES MANAGER - 06/11/2019 2:45 PM CDT Index Congolese Relatedtopics Adult Immunizations SESAY POINTS You need [...] is not immune to rubella (also called Uz[place] measles) and gets infect ed with the [...] healthcare provider and at most local health [facility] artments. You can get more information from: Centers for Disease Control and Prevention 040-952-6207 https://www.cdc.gov/vaccines/index.html Developed by [employer]. Adult Advisor 2017.4 published by [employer]. Last modified: 2016-12-11 Last reviewed: 2017-07-12 This content is reviewed periodically and is subject to change as new health inf ormation becomes available. The information is intended to inform and educate an d is not a replacement for medical evaluation, advice, diagnosis or treatment by a healthcare professional. References Adult Advisor 2016.4 Index Copyright 2017 [employer], a division of [employer]. All righ ts reserved. Index Congolese Relatedtopics Pap Test SESAY POINTS A Pap [...] you might need to make Developed by [employer]. Adult Advisor 2017.4 published by [employer]. Last modified: 2015-08-18 Last reviewed: 2015-08-10 This content is reviewed periodically and is subject to change as new health inf ormation becomes available. The information is intended to inform and educate an d is not a replacement for medical evaluation, advice, diagnosis or treatment by a healthcare professional. References Adult Advisor 2017.4 Index Copyright 2017 [employer], a division of [employer]. All righ ts reserved. Index Congolese Relatedtopics Human Papillomavirus SESAY POINTS Human papillomavirus [...] a common sexually transmitted disease spread by iqmw-nf-zryf contact. Mos t sexually-active men and women [...] is completely treated and healed. Developed by [employer]. Adult Advisor 2017.4 published by [employer]. Last modified: 2017-01-12 Last reviewed: 2016-10-09 This content is reviewed periodically and is subject to change as new health inf ormation becomes available. The information is intended to inform and educate an d is not a replacement for medical evaluation, advice, diagnosis or treatment by a healthcare professional. References Adult Advisor 2017.4 Index Copyright 2017 [employer], a division of [employer]. All righ ts reserved. Index Congolese Relatedtopics Sexually Transmitted Diseases SESAY POINTS Sexually [...] includes vaginal intercourse, anal intercourse, oral sex, nygc-ic-qfgy contact in the genital area, kissing, and [...] cannot afford to pay for treatment, most [facility] have an STD clinic or county health [...] clinic The Centers for Disease Control (CDC) 811.242.4386 https://www.cdc.gov/std Developed by [employer]. Adult Advisor 2016.4 published by [employer]. Last modified: 2017-05-22 Last reviewed: 2017-01-11 This content is reviewed periodically and is subject to change as new health inf ormation becomes available. The information is intended to inform and educate an d is not a replacement for medical evaluation, advice, diagnosis or treatment by a healthcare professional. References Adult Advisor 2016.4 Index Copyright 2017 [employer], a division of [employer]. All righ ts reserved. Index Congolese Relatedtopics Condom: Male SESAY POINTS The male [...] use polyuret hane condoms instead. Developed by [employer]. Adult Advisor 2017.4 published by [employer]. Last modified: 2015-11-15 Last reviewed: 2015-11-15 This content is reviewed periodically and is subject to change as new health inf ormation becomes available. The information is intended to inform and educate an d is not a replacement for medical evaluation, advice, diagnosis or treatment by a healthcare professional. References Adult Advisor 2017.4 Index Copyright 2017 [employer], a division of [employer]. All righ ts reserved. Index Congolese Relatedtopics Mammogram SESAY POINTS A mammogram is [...] 50 to 74 years old (2009). The [place] [employer] Society recommends that women with an average risk of breast cancer should have a screening mammography every year from ages 45-54 years. Wo men ages 55 years and older should have screening every 2 years, or they can con tinue yearly. Women should be able to begin yearly screening between the ages of 40 and 44 years (2015). The [place] College of Obstetricians and Gynecologists (ACOG) recommends [...] can find very small cancers that may buffing turner and counter to be harmless. Thes e cancers may [...] t hat you may have. Developed by [employer]. Adult Advisor 2017.4 published by [employer]. Last modified: 2017-03-26 Last reviewed: 2017-03-23 This content is reviewed periodically and is subject to change as new health inf ormation becomes available. The information is intended to inform and educate an d is not a replacement for medical evaluation, advice, diagnosis or treatment by a healthcare professional. References Adult Advisor 2016.4 Index Copyright 2017 [employer], a division of [employer]. All righ ts reserved. Index Congolese Relatedtopics Breast Self-Exam SESAY POINTS Breast self-exam [...] milk if you are breast-feeding). Developed by [employer]. Adult Advisor 2017.4 published by [employer]. Last modified: 2015-11-11 Last reviewed: 2015-11-11 This content is reviewed periodically and is subject to change as new health inf ormation becomes available. The information is intended to inform and educate an d is not a replacement for medical evaluation, advice, diagnosis or treatment by a healthcare professional. References Adult Advisor 2016.4 Index Copyright 2017 [employer], a division of [employer]. All righ ts reserved Index Congolese Relatedtopics Colposcopy (Exam of Vagina and Cervix) [...] concerns that you may have. Developed by [employer]. Adult Advisor 2017.4 published by [employer]. Last modified: 2016-06-28 Last reviewed: 2016-06-28 This content is reviewed periodically and is subject to change as new health inf ormation becomes available. The information is intended to inform and educate an d is not a replacement for medical evaluation, advice, diagnosis or treatment by a healthcare professional. References Adult Advisor 2017.4 Index Copyright 2017 [employer], a division of [employer]. All righ ts reserved. Index Congolese Relatedtopics Precancerous Changes in the Cervix SESAY [...] ways to urszula t smoking. Developed by [employer]. Adult Advisor 2017.4 published by [employer]. Last modified: 2016-09-26 Last reviewed: 2016-09-26 This content is reviewed periodically and is subject to change as new health inf ormation becomes available. The information is intended to inform and educate an d is not a replacement for medical evaluation, advice, diagnosis or treatment by a healthcare professional. References Adult Advisor 2017.4 Index Copyright 2017 [employer], a division of [employer]. All righ ts reserved. Index Congolese Zika Virus SESAY POINTS Zika virus infection [...] central states, as well as in the [facility], [place], [place], [place], [...] spray the repellent directly on your face. Mccarley the repellent on your hands first and then put it on your face. Then wash the spray off your hands. Adults should use repellent products with no more than 35% DEET. Wash it off your body when you go back indoors. Picaridin may irritate the skin less than DEET and appears to be just as effe ctive. Mccarley clothes with repellents because mosquitoes may bite [...] get more information from: World Health Organization http://www.who.int/conveyor monitor/don/en/index.html The Centers for Disease Control and Prevention 532-786-2718 https://www.cdc.gov Developed by [employer]. Adult Advisor 2016.4 published by [employer]. Last modified: 2017-05-22 Last reviewed: 2017-03-28 This content is reviewed periodically and is subject to change as new health inf ormation becomes available. The information is intended to inform and educate an d is not a replacement for medical evaluation, advice, diagnosis or treatment by a healthcare professional. References Adult Advisor 2016.4 Index Copyright 2017 [employer], a division of [employer]. All righ ts reserved. documented in this [...] file Gets together: Not on file Attends moravian service: Not on file Active member of [...] been confirmed by the following clinicians: Kell Church.PRE OWNED SALES MANAGER. Timeout performed by Sheela Zeng CNM at [...] Description Date Type Specialty Lab, Jey 08/08/2019 Event Security Officer OB Satellites Visit 1, Jey Slade Rn [...] Relationship Communication Name Mother Primary healthcare agent Lyentte Palma
--- OUTSIDE RECORDS SUMMARY | 2019-07-26 18:20 | XMS REPORT ---
Author Author [facility] Address Unknown Phone Unavailable Care Team Providers Care Wharfmaster Name Role Phone Unavailable Unavailable Problems This patient has no known problems. Allergies, Adverse Reactions, Alerts This patient has no known allergies or adverse reactions. Medications This patient has no known medications.
--- OUTSIDE RECORDS SUMMARY | 2019-07-26 18:20 | XMS REPORT | Summary of Care ---
Author Author [facility] - Health Organization [facility] - Health Address Unknown Phone Unavailable Care Team Providers Care Spareribs Trimmer Name Role Phone Mykel Vaughana Summer CNM PCP Encounter Details Care Team Description Date Type Department Doctor Unassigned, [place] [address] [place] [address] 04/23/2019 Patient Secure [facility] [place] Messages Msg [address] [place] [id number] Allergies Comments Active Allergy Reactions Severity Noted Date Penicillin Rash 01/18/2018 documented as of this encounter (statuses as of 05/24/2019) Medications No known medicationsdocumented as of this encounter (statuses as of 05/24/2019) Active Problems Problem Noted Date Irregular menstrual cycle 05/06/2019 Herpes simplex vulvovaginitis 12/06/2018 HSV-2 (herpes simplex virus 2) infection 12/05/2018 Pap smear of cervix with ASCUS, cannot exclude HGSIL 05/08/2018 Overview: colpo 2018 05/06/2019- Cotesting. Needs #2 cotesting 2020 Obesity (BMI 30-39.9) 01/18/2018 documented as of this encounter (statuses as of 05/24/2019) Resolved Problems Problem Noted Date Resolved Date General counseling for prescription of oral contraceptives 01/18/2018 05/08/2018 documented as of this encounter (statuses as of 05/24/2019) Immunizations Name Administration Dates Next Due HPV9 12/05/2018 Influenza Virus Vaccine 12/05/2018 Quad .5 [...] Treatment Care Team Description Date Type Specialty Sheela Zeng BERTRAM [address] [id number] 2, Jey Fc Room 05/28/2019 Office Visit OB Satellites Sheela ZengBERTRAM [address] [address] 05/28/2019 Office Visit [facility] Satellites LabJey 08/08/2019 Cosmetic Assembler OB Satellites Visit 1, Jey Slade Rn 11/07/2019 Nurse Visit OB Satellites Health Maintenance Due Date Last Done Comments VARICELLA VACCINES (1 of 2006 2 - 13+ 2-dose series) INFLUENZA VACCINE 06/22/2019 12/05/2018 HPV VACCINES (3 - Female 07/29/2019 05/06/2019, 12/05/2018 3-dose series) PAP SMEAR 05/06/2022 05/06/2019, 01/18/2018 DTaP,Tdap,and Td Vaccines 12/05/2028 12/05/2018 (2 - Td) PNEUMOCOCCAL 0-64 YEARS Aged Out No longer eligible based COMBINED SERIES on patient's age to complete this topic documented as of this encounter Results Not on filedocumented in this encounter Insurance Type Payer Benefit Subscriber ID Effective Phone Address Plan / Dates Group Medicaid [place] [id number] xxxxxxxxx 2017-P [phone] [place] [address] Medicaid [place] xxxxxxxxx 2019-P [phone] [place] [id number] [place] [address] documented as of this encounter Advance Directives Relationship Healthcare Agent Relationship Communication Name Mother Primary healthcare agent Lynette Palma
--- OUTSIDE RECORDS SUMMARY | 2019-07-26 18:20 | XMS REPORT | Summary of Care ---
Author Author [facility] - Health Organization [facility] - Health Address Unknown Phone Unavailable Care Team Providers Care Test Engineer Nuclear Equipment Name Role Phone Mykel Vaughana Summer DIXONM PCP Reason for Visit * Reason Comments Lab Results Encounter Details Care Team Description Date Type Department Gabby Reyes [id number] [place] [address] Lab Results 06/12/2019 [facility] [address] [place] [address] Allergies Comments Active Allergy Reactions Severity [...] Description Date Type Specialty Lab, Jey 08/08/2019 Automatic Presser OB Satellites Visit 1, Jey Slade Rn [...] / Dates Group Medicaid [place] x[facility] 2017-P [id number] [place] [address] documented as of this encounter Advance Directives Relationship Healthcare Agent Relationship Communication Name Mother Primary healthcare agent Lynette Palma
--- OUTSIDE RECORDS SUMMARY | 2019-07-26 18:20 | XMS REPORT | Summary of Care ---
Author Author [facility] - Health Organization [facility] - Health Address Unknown Phone Unavailable Care Team Providers Care Reordering Clerk Name Role Phone Kallie Vaughan CNM PCP Reason for Referral * (Routine) Referred By Contact Referred To Contact Status Reason Specialty Diagnoses / Procedures Sheela Zeng CNM [address] [address] New Request Obstetrics & Diagnoses Gynecology Pap smear of cervix with ASCUS, cannot exclude HGSIL P rocedures CONSULT/REFERRAL MAINTENANCE CARPENTER Dysplasia Clinic (leep) * (Routine) Referred By Contact Referred To Contact Status Reason Specialty Diagnoses / Procedures Sheela Zeng CNM [address] [address] New Request Diagnoses Pap smear of cervix with ASCUS, cannot exclude HGSIL P rocedures COLPOSCOPY,CERVIX W/ADJ VAGINA, CURETTAG Reason for Visit * Reason Comments ABNORMAL PAP Encounter Details Care Team Description Date Type Department Sheela Zeng CNM [address] [address] Pap smear of cervix with ASCUS, cannot exclude HGSIL (Primary Dx); Pre-procedure lab exam; Obesity (BMI 30-39.9); HSV-2 (herpes simplex virus 2) infection; Chlamydia trachomatis infection of lower genitourinary sites; Status post colposcopy 06/11/2019 Office Visit [facility] [address] [place] [phone] Allergies Comments Active Allergy Reactions Severity Noted Date Penicillin Rash 01/18/2018 documented as of this encounter (statuses as of 06/13/2019) Medications End Date Status Medication Sig Dispensed Refills Start Date 06/15/2019 Active valACYclovir 500 mg Take 1 tablet 20 tablet 3 tablet by mouth 2 9 (two) times daily for 40 days. documented as of this encounter (statuses as of 06/13/2019) Active Problems Problem Noted Date Papanicolaou smear of cervix with high grade squamous intraepithelial 06/13/2019 lesion (HGSIL) Pre-procedure lab exam 06/11/2019 Chlamydia trachomatis infection of lower genitourinary sites 06/11/2019 Status post colposcopy 06/11/2019 HSV-2 (herpes simplex virus 2) infection 12/05/2018 Pap smear of cervix with ASCUS, cannot exclude HGSIL 05/08/2018 Overview: colpo 2018 05/06/2019- Cotesting. Needs #2 cotesting 2020 Obesity (BMI 30-39.9) 01/18/2018 documented as of this encounter (statuses as of 06/13/2019) Resolved Problems Problem Noted Date Resolved Date Irregular menstrual cycle 05/06/2019 06/11/2019 Herpes simplex vulvovaginitis 12/06/2018 06/11/2019 General counseling for prescription of oral contraceptives 01/18/2018 05/08/2018 documented as of this encounter (statuses as of 06/13/2019) Immunizations Name Administration Dates Next Due HPV9 [...] encounter Patient Instructions * Patient Instructions* Kell Church LVN - 06/11/2019 2:45 PM CDT Index [place]ian Relatedtopics Adult Immunizations SESAY POINTS You need [...] Measles and mumps were very common before 1956, so older adults have probably been exposed to these diseases and are already immun e. If you have had 1 measles shot, you may need a second one. Ask your healthcar e provider. If a woman is not immune to rubella (also called [place] measles) and gets infect ed with the [...] your healthcare provider and at most local [facility]. You can get more information from: Centers for Disease Control and Prevention 282-820-8887 https://www.cdc.gov/vaccines/index.html Developed by [employer] Adult Advisor 2016.4 published by [employer] Last modified: 2016-12-11 Last reviewed: 2017-07-12 This content is reviewed periodically and is subject to change as new health inf ormation becomes available. The information is intended to inform and educate an d is not a replacement for medical evaluation, advice, diagnosis or treatment by a healthcare professional. References Adult Advisor 2016.4 Index Copyright 2017 [employer], a division of [employer]. All righ ts reserved. Index [place] Relatedtopics Pap Test SESAY POINTS A Pap [...] you might need to make Developed by [employer] Adult Advisor 2017.4 published by [employer] Last modified: 2015-08-18 Last reviewed: 2015-08-10 This content is reviewed periodically and is subject to change as new health inf ormation becomes available. The information is intended to inform and educate an d is not a replacement for medical evaluation, advice, diagnosis or treatment by a healthcare professional. References Adult Advisor 2017.4 Index Copyright 2017 [employer], a division of [employer]. All righ ts reserved. Index [place]ian Relatedtopics Human Papillomavirus SESAY POINTS Human papillomavirus [...] a common sexually transmitted disease spread by ifdv-mt-iqhp contact. Mos t sexually-active men and women [...] is completely treated and healed. Developed by [employer] Adult Advisor 2016.4 published by [employer] Last modified: 2017-01-12 Last reviewed: 2016-10-09 This content is reviewed periodically and is subject to change as new health inf ormation becomes available. The information is intended to inform and educate an d is not a replacement for medical evaluation, advice, diagnosis or treatment by a healthcare professional. References Adult Advisor 2016.4 Index Copyright 2017 [employer], a division of [employer]. All righ ts reserved. Index [place]ian Relatedtopics Sexually Transmitted Diseases SESAY POINTS Sexually [...] includes vaginal intercourse, anal intercourse, oral sex, jcmf-py-pnuu contact in the genital area, kissing, and [...] cannot afford to pay for treatment, most [facility] have an [facility] or [facility] where visits are free of [...] clinic The Centers for Disease Control (CDC) 478.781.7394 https://www.cdc.gov/std Developed by [employer] Adult Advisor 2017.4 published by [employer] Last modified: 2017-05-22 Last reviewed: 2017-01-11 This content is reviewed periodically and is subject to change as new health inf ormation becomes available. The information is intended to inform and educate an d is not a replacement for medical evaluation, advice, diagnosis or treatment by a healthcare professional. References Adult Advisor 2016.4 Index Copyright 2017 [employer], a division of [employer]. All righ ts reserved. Index [place]ian Relatedtopics Condom: Male SESAY POINTS The male [...] use polyuret hane condoms instead. Developed by [employer] Adult Advisor 2017.4 published by [employer] Last modified: 2015-11-15 Last reviewed: 2015-11-15 This content is reviewed periodically and is subject to change as new health inf ormation becomes available. The information is intended to inform and educate an d is not a replacement for medical evaluation, advice, diagnosis or treatment by a healthcare professional. References Adult Advisor 2017.4 Index Copyright 2017 [employer], a division of [employer]. All righ ts reserved. Index [place]ian Relatedtopics Mammogram SESAY POINTS A mammogram is [...] 50 to 74 years old (2009). The [place] [employer] Society recommends that women with an average risk of breast cancer should have a screening mammography every year from ages 45-54 years. Wo men ages 55 years and older should have screening every 2 years, or they can con tinue yearly. Women should be able to begin yearly screening between the ages of 40 and 44 years (2015). The [place] College [employer] Obstetricians [employer] Gynecologists (ACOG) recommends [...] can find very small cancers that may bottom turning lathe turner to be harmless. Thes e cancers [...] t hat you may have. Developed by [employer] Adult Advisor 2017.4 published by [employer] Last modified: 2017-03-26 Last reviewed: 2017-03-23 This content is reviewed periodically and is subject to change as new health inf ormation becomes available. The information is intended to inform and educate an d is not a replacement for medical evaluation, advice, diagnosis or treatment by a healthcare professional. References Adult Advisor 2017.4 Index Copyright 2017 [employer], a division of [employer]. All righ ts reserved. Index [place]ian Relatedtopics Breast Self-Exam SESAY POINTS Breast self-exam [...] milk if you are breast-feeding). Developed by [employer] Adult Advisor 2017.4 published by [employer] Last modified: 2015-11-11 Last reviewed: 2015-11-11 This content is reviewed periodically and is subject to change as new health inf ormation becomes available. The information is intended to inform and educate an d is not a replacement for medical evaluation, advice, diagnosis or treatment by a healthcare professional. References Adult Advisor 2017.4 Index Copyright 2017 [employer], a division of [employer]. All righ ts reserved Index [place]ian Relatedtopics Colposcopy (Exam of Vagina and Cervix) [...] of side effects or bleeding. Ask your ealtare provider if you need to avoid taking [...] concerns that you may have. Developed by [employer] Adult Advisor 2017.4 published by [employer] Last modified: 2016-06-28 Last reviewed: 2016-06-28 This content is reviewed periodically and is subject to change as new health inf ormation becomes available. The information is intended to inform and educate an d is not a replacement for medical evaluation, advice, diagnosis or treatment by a healthcare professional. References Adult Advisor 2017.4 Index Copyright 2017 [employer], a division of [employer]. All righ ts reserved. Index [place] Relatedtopics Precancerous Changes in the Cervix SESAY POINTS Precancerous changes in the cervix means that abnormal cells were found durin g your female exam. Your healthcare provider [...] and it may be done in yo providers office. A cone biopsy usually uses [...] ways to urszula t smoking. Developed by [employer] Adult Advisor 2017.4 published by [employer] Last modified: 2016-09-26 Last reviewed: 2016-09-26 This content is reviewed periodically and is subject to change as new health inf ormation becomes available. The information is intended to inform and educate an d is not a replacement for medical evaluation, advice, diagnosis or treatment by a healthcare professional. References Adult Advisor 2017.4 Index Copyright 2017 [employer], a division of [employer]. All righ ts reserved. Index [place]ian Zika Virus SESAY POINTS Zika virus infection [...] central states, as well as in the [place], [place], [place], [place], southern [place], [...] spray the repellent directly on your face. [place] the repellent on your hands first and then put it on your face. Then wash the spray off your hands. Adults should use repellent products with no more than 35% DEET. Wash it off your body when you go back indoors. Picaridin may irritate the skin less than DEET and appears to be just as effe ctive. [place] clothes with repellents because mosquitoes may bite [...] get more information from: World Health Organization http://www.who.int/opener verifier packer customs/don/en/index.html The Centers for Disease Control and Prevention 680-743-7985 https://www.cdc.gov Developed by [employer] Adult Advisor 2017.4 published by [employer] Last modified: 2017-05-22 Last reviewed: 2017-03-28 This content is reviewed periodically and is subject to change as new health inf ormation becomes available. The information is intended to inform and educate an d is not a replacement for medical evaluation, advice, diagnosis or treatment by a healthcare professional. References Adult Advisor 2016.4 Index Copyright 2017 [employer], a division of [employer]. All righ ts reserved. documented in this [...] file Gets together: Not on file Attends jew service: Not on file Active member of [...] been confirmed by the following clinicians: Kell Church.DAM TENDER ASSISTANT. Timeout performed by Sheela Zeng CNM at [...] Diseases Condom;male Pamphlets provided to patient: HPV (DSHS), Abnormal Pap Test Results (MATTHEW) documented in this encounter Plan of Treatment Care Team Description Date Type Specialty Res-Colpo/Leep, [facility] 07/22/2019 [facility] Bible Reader [facility] Nurse Visit [facility] [...] Comments Procedure Name Priority Date/Time Associated Diagnosis SURGICAL PATHOLOGY EXAM Routine 06/11/2019 Pap smear of cervix with 3:20 PM CDT ASCUS, cannot exclude HGSIL Status post colposcopy GC & CHLAMYDIA AMPLIFIED Routine 06/11/2019 Chlamydia trachomatis ASSAY 3:17 PM CDT infection of lower genitourinary sites POCT TEST Routine 06/11/2019 Pre-procedure lab exam 3:07 PM CDT documented in this encounter Results * SURGICAL PATHOLOGY EXAM (06/11/2019 3:20 PM CDT) Case Report Surgical [facility] Pathology SERVICES Case: [id number] Authorizing Provider:Sheela Zeng CNM Collected: 06/11/2019 1520 Ordering Location: [facility] Received: 06/11/2019 1542 Pathologist: Maria Victoria Blanchard MD Specimens: A) - ENDOCERVICAL B) - ECTOCERVICAL Final Diagnosis A. ENDOCERVIX, CURETTAGE: [facility] Electronically - HIGH-GRADE SQUAMOUS SERVICES signed by Santo, INTRAEPITHELIAL LESION (DON Maria Victoria Man MD III) on 06/13/2019 at - FRAGMENTS OF BENIGN 1:23 PM DEGENERATED ENDOCERVICAL GLANDULAR EPITHELIUM PRESENT B. CERVIX, BIOPSY: - HIGH-GRADE SQUAMOUS INTRAEPITHELIAL LESION (DON III) WITH GLANDULAR INVOLVEMENT Jason Riley MD, PGY-4 I have personally reviewed all specimens/slides and agree with all statements made by residents, fellows or pathologist assistants whose name(s) may appear on this report. Clinical ascus cannot r/o hgsil [facility] Information SERVICES Gross Specimen A is received in [facility] Description formalin labelled with the SERVICES patient s name, number ECC and consists of an aggregate of multiple hemorrhagic bailey-pink mucinous irregular semi-translucent soft tissue fragments (3.0 x 0.2 x 0.1 cm). The specimen is filtered through a biopsy bag and entirely submitted in toto in A1. Specimen B is received in formalin labelled with the patient s name, number ectocervical tissue biopsy and consists of an aggregate of multiple hemorrhagic bailey-pink mucinous semi-translucent irregular soft tissue fragments (3.0 x 0.7 x 0.2 cm). The specimen is filtered through a biopsy bag and entirely submitted in toto in B1. LIZ Morgan (ASCP)cm Embedded Images [facility] SERVICES Specimen Tissue - ENDOCERVICAL Tissue specimen (specimen) - ECTOCERVICAL Performing Organization Address City/State/Zipcode Phone Number [facility] CLIA: [id number], [address] [place] [id number] [facility] * GC & CHLAMYDIA AMPLIFIED ASSAY (06/11/2019 3:17 PM CDT) C. trachomatis CHLAMYDIA TRACHOMATIS DNA (A) Negative [facility] Nucleic Acid SERVICES N. gonorrhoeae NEGATIVE Negative [facility] Nucleic Acid SERVICES Specimen Urine - URINE, UNSPECIFIED SOURCE Performing Organization Address City/State/Zipcode Phone Number [facility] CLIA: [id number], [address] [place] [address] [facility] * POCT TEST (06/11/2019 3:07 PM CDT) [...]
--- OUTSIDE RECORDS SUMMARY | 2019-07-26 18:21 | XMS REPORT | Summary of Care ---
Author Author [facility] - Health Organization [facility] - Health Address Unknown Phone Unavailable Care Team Providers Care Production Hardener Name Role Phone PCP Unavailable Reason for Visit * Reason Comments Rx Concern/Question Encounter Details Care Team Description Date Type Department Ela Kaur FNP [address] [place] [address] Rx Concern/Question 07/10/2019 Telephone [facility] [address] [place] [address] Allergies Comments Active Allergy Reactions Severity Noted Date Penicillin Rash 01/18/2018 documented as of this encounter (statuses as of 07/10/2019) Medications No known medicationsdocumented as of this encounter (statuses as of 07/10/2019) Active Problems Problem Noted Date Papanicolaou smear [...] as of this encounter (statuses as of 07/10/2019) Resolved Problems Problem Noted Date Resolved Date Irregular menstrual cycle 05/06/2019 06/11/2019 Herpes simplex vulvovaginitis 12/06/2018 06/11/2019 General counseling for prescription of oral contraceptives 01/18/2018 05/08/2018 documented as of this encounter (statuses as of 07/10/2019) Immunizations Name Administration Dates Next Due HPV9 [...] Care Team Description Date Type Specialty Res-Colpo/Leep, [facility], [facility] 09/12/2019 Area Cleaner [facility] Nurse Visit [facility] [...] Address Plan / Dates Group Medicaid [facility] [place] [facility] xxxxxxxxx 2017-P [phone] [id number] [place] [address] documented as of this encounter Advance Directives Relationship Healthcare Agent Relationship Communication Name Mother Primary healthcare agent Lynette Palma
--- OUTSIDE RECORDS SUMMARY | 2019-07-26 18:21 | XMS REPORT | Summary of Care ---
Author Author [facility] - Health Organization [facility] - Health Address Unknown Phone Unavailable Care Team Providers Care Water Jet Operator Name Role Phone Kallie VaughanM PCP Encounter Details Care Team Description Date Type Department Doctor Unassigned, [place] [address] [place] [address] 06/11/2019 Orders Only [facility] [address] [place] [address] Allergies Comments Active Allergy Reactions Severity Noted Date Penicillin Rash 01/18/2018 documented as of this encounter (statuses as of 06/19/2019) Medications No known medicationsdocumented as of this encounter (statuses as of 06/19/2019) Active Problems Problem Noted Date Papanicolaou smear [...] as of this encounter (statuses as of 06/19/2019) Resolved Problems Problem Noted Date Resolved Date Irregular menstrual cycle 05/06/2019 06/11/2019 Herpes simplex vulvovaginitis 12/06/2018 06/11/2019 General counseling for prescription of oral contraceptives 01/18/2018 05/08/2018 documented as of this encounter (statuses as of 06/19/2019) Immunizations Name Administration Dates Next Due HPV9 [...] Care Team Description Date Type Specialty Res-Colpo/Leep, [facility] 07/22/2019 [facility] Grinding Wheel Operator [facility] [...] Comments Procedure Name Priority Date/Time Associated Diagnosis BCCS-RELATED Routine 06/11/2019 DOCUMENTATION 12:01 AM CDT documented in this encounter Results Not on filedocumented in this encounter Insurance Type Payer Benefit Subscriber ID Effective Phone Address Plan / Dates Group Medicaid [employer] [place] xxxxxxxxx 2017-P [phone] [address] [place] [address] documented as of this encounter Advance Directives Relationship Healthcare Agent Relationship Communication Name Mother Primary healthcare agent Lynette Palma
--- OUTSIDE RECORDS SUMMARY | 2019-07-26 18:21 | XMS REPORT | Summary of Care ---
Author Author [facility] - Health Organization [facility] - Health Address Unknown Phone Unavailable Care Team Providers Care Web Site Administrator Name Role Phone Kallie Vaughan CNM PCP Reason for Visit * Reason Comments ABNORMAL PAP need LEEP Encounter Details Care Team Description Date Type Department Sheela Zeng CNM [address] [address] ABNORMAL PAP (need LEEP) 06/13/2019 Telephone [facility] [employer] [facility] [address] [place] [address] Allergies Comments Active Allergy Reactions Severity [...] Care Team Description Date Type Specialty Res-Colpo/Leep, [facility] 07/22/2019 Office Visit [facility], [facility] 09/12/2019 Beet End Supervisor [facility] Nurse Visit [facility] [...] / Dates Group Medicaid [employer]OM[facility] xxxxxxxxx 2017-P [phone] [address] [place] [address] documented as of this encounter Advance Directives Relationship Healthcare Agent Relationship Communication Name Mother Primary healthcare agent Lynette Palma
== END 2019-07-26 18:39 | disposition left against medical advice (07) ==
LOC: ER 18:17
DX: R10.30 Lower abdominal pain, unspecified (principal)
CPT/HCPCS: 99282